=== PATIENT | female | born 1965 | race Caucasian/White ===

== ENCOUNTER 2023-02-05 07:52 | Day surgery (SDC) | payer MEDICAID ==
[~2023-02-05] VITALS: Ht 165.1 cm; Wt 106.6 kg
[2023-02-05 08:40] VITALS: O2SAT 99
[2023-02-05] MEDS ORDERED: MEPERIDINE 100 MG INJ. 100 MG/ML VIAL ONE (10:04)
[2023-02-05] MEDS ORDERED: MIDAZOLAM HCL 5 MG/5 ML VIAL ONE (10:05)
[2023-02-05 12:05] VITALS: BP_SYST 111; PULSE 57; RESP 16
== END 2023-02-05 11:22 | disposition home or self-care (01) ==
LOC: SDS 07:52 → SMU 07:53 → SDS 11:22
PROVIDERS: ATTEND Internal Medicine
DX: Z12.11 Encounter for screening for malignant neoplasm of colon (principal); K64.8 Other hemorrhoids; D12.2 Benign neoplasm of ascending colon; D12.5 Benign neoplasm of sigmoid colon; I10 Essential (primary) hypertension; E03.9 Hypothyroidism, unspecified; Z79.899 Other long term (current) drug therapy
CPT/HCPCS: 45380; 45385; 99152; 88305; G0378; J2250; J2175; 45382